=== PATIENT | female | born 1940 | race Caucasian/White ===

== ENCOUNTER 2019-10-13 08:00 | Outpatient (CLI) | payer MEDICARE, OTHER | END 2019-10-13 23:59 | disposition home or self-care (01) | LOC: LAB.R 08:00 | PROVIDERS: ATTEND Obstetrics & Gynecology | DX: R30.0 Dysuria (principal) | CPT/HCPCS: 87086; 87181 ==

== ENCOUNTER 2020-11-22 11:44 | Outpatient (CLI) | payer MEDICARE, OTHER ==
[2020-11-22 12:21] LABS: ALBUMIN 4.2 g/dL (3.2-5.5); ALBUMIN/GLOBULIN RATIO 1.1 (1.0-2.2); BILIRUBIN,TOTAL 0.4 mg/dL (0.2-1.0); CALCIUM 9.4 mg/dL (8.5-10.3); CREATININE 0.7 mg/dL (0.4-1.0); POTASSIUM 4.3 mmol/L (3.5-5.0); TOTAL PROTEIN 8.1 g/dL (6.7-8.2)
== END 2020-11-22 11:45 | disposition home or self-care (01) ==
LOC: LAB 11:44
PROVIDERS: ATTEND Family Medicine
DX: M81.0 Age-related osteoporosis without current pathological fracture (principal); Z87.81 Personal history of (healed) traumatic fracture; Z51.81 Encounter for therapeutic drug level monitoring
CPT/HCPCS: 36415; 80053; 82306

== ENCOUNTER 2022-09-16 08:00 | Outpatient (CLI) | payer MEDICARE, OTHER ==
[2022-09-16 21:00] LABS: BILIRUBIN,URINE NEGATIVE (NEGATIVE); GLUCOSE, URINE (UA) NEGATIVE (NEGATIVE); KETONES,URINE (UA) NEGATIVE (NEGATIVE); LEUKOCYTE ESTERASE, URINE SMALL (NEGATIVE); NITRITE,URINE POSITIVE (NEGATIVE); OCCULT BLOOD,URINE NEGATIVE (NEGATIVE); PH,URINE 5.5 PH (5.0-7.5); PROTEIN,URINE NEGATIVE (NEGATIVE); UROBILINOGEN,URINE 0.2 (NORMAL) E.U./dL (NORMAL)
[2022-09-16 21:12] LABS: BACTERIA,URINE Many /HPF (None Seen); CLARITY,URINE CLOUDY (CLEAR); SQUAMOUS EPITHELIAL CELL,UR RARE Squamous (<= Few); WBC CLUMPS,URINE PRESENT; WBC,URINE >25 /HPF (0-5)
== END 2022-09-16 23:59 | disposition home or self-care (01) ==
LOC: LAB 08:00
PROVIDERS: ATTEND Emergency Medicine
DX: R30.0 Dysuria (principal)
CPT/HCPCS: 81001; 87086; 87181

== ENCOUNTER 2023-09-15 15:36 | Emergency (ER) | payer MEDICARE, OTHER ==
--- NOTE | 2023-09-15 16:22 | XRAY Report ---
PROCEDURE: Foot 3+V LT INDICATIONS: Trauma TECHNIQUE: 3 views of the foot were acquired. COMPARISON: None. FINDINGS: Bones: Age-indeterminate fracture of the dorsal tibia. No abnormality of the base of the fifth digit. Soft tissues: Small tibiotalar joint effusion. Achilles tendon appears normal. IMPRESSION: Age-indeterminate fracture of the dorsal tibia, with small ankle joint effusion. Reviewed by: Mustapha Andrade MD on 09/15/2023 4:21 PM PDT Approved by: Mustapha Andrade MD on 09/15/2023 4:21 PM PDT Station ID: [id number]
--- NOTE | 2023-09-15 17:17 | ED Physician Documentation ---
History of Present Illness - Stated complaint Stated Complaint: L FOOT PX - Chief complaint Chief Complaint: Trauma Ext - History obtained from History obtained from: Patient - History of Present Illness Timing: How many weeks ago (2) Pain level max: 4 Pain level now: 4 - Additonal information Additional information: 82-year-old female presents to the emergency department after a fall 2 weeks ago at home. She states she fell down the stairs injuring her left foot. She states she still has bruising and swelling of the foot. Came in to make sure that there was no fracture. Worse with walking, better with rest. No head, neck, back pain. Review of Systems Musculoskeletal: denies: Neck pain, Back pain Neurologic: denies: Headache, Head injury, LOC PD PAST MEDICAL HISTORY - Past Medical History Past Medical History: No Cardiovascular: None Respiratory: None Neuro: None Endocrine/Autoimmune: Type 1 diabetes GI: None [employer]: None : None HEENT: None Psych: None Musculoskeletal: None Derm: None - Past Surgical History Past Surgical History: Yes - Present Medications Home Medications: Ambulatory Orders Medication Instructions Recorded Confirmed No Known Home Medications 09/15/23 09/15/23 - Allergies Allergies/Adverse Reactions: Allergies Allergy/AdvReac Type Severity Reaction Status Date / Time No Known Drug Allergies Allergy Verified 09/15/23 16:00 - Social History Does the pt smoke?: No Smoking Status: Never smoker PD ED PE NORMAL - Vitals Vital signs reviewed: Yes - General General: Alert and oriented X 3, No acute distress - HEENT HEENT: Atraumatic, Moist mucous membranes - Neck Neck: Supple, no meningeal sign - Cardiac Cardiac: RRR - Respiratory Respiratory: No respiratory distress, Clear bilaterally - Derm Derm: Warm and dry - Extremities Extremities: Other (- Mild swelling and tenderness, the left foot. Small amount of bruising near the fourth and fifth toes. Neurovascularly intact. Slight tenderness over the dorsal talus. Otherwise normal examination of the left foot and ankle) - Neuro Neuro: Alert and oriented X 3 Results - Vitals Vitals: Oxygen O2 Source Room air - Rads (name of study) L foot xray Relevant Findings:: Final report received, See rad report PD Medical Decision Making - ED course Complexity details: reviewed results, re-evaluated patient, considered differential, d/w patient ED course: Questionable fracture of the dorsal talus. Neurovascularly intact. No other fractures on x-ray. Placed in a walking boot. We will have her follow up with orthopedics for repeat evaluation and to ensure proper healing. Patient counseled regarding signs and symptoms for which I believe an urgent re- evaluation would be necessary. Patient with good understanding of and agreement to plan and is comfortable going home at this time. This document was made in part using voice recognition software. While efforts are made to proofread this document, sound alike and grammatical errors may occur. Departure - Departure Disposition: 01 Home, Self Care Clinical Impression: Talus fracture Qualifiers: Encounter type: initial encounter Fracture type: closed Talus location: unspecified portion of talus Fracture alignment: nondisplaced Laterality: left Qualified Code(s): S92.102A - Unspecified fracture of left talus, initial encounter for closed fracture Condition: Good Instructions: ED Fx Foot Follow-Up: [facility] CARTER [Primary Care Provider] - [facility] [Provider Group] - Within 1 week Comments: Please contact orthopedics for follow-up appointment. You appear to have a possible fracture on the dorsal aspect of your talus which is a bone in the top of your foot. Please stay in the walking boot is much as possible. You can use Motrin or Tylenol as needed for pain. Please return if you worsen. Forms: PCP List Discharge Date/Time: 09/15/23 17:28
[2023-09-15 17:29] VITALS: BP 169/98; O2SAT 98
== END 2023-09-15 17:28 | disposition home or self-care (01) ==
LOC: ED 15:36
DX: S92.142A Displaced dome fracture of left talus, initial encounter for closed fracture (principal); W10.9XXA Fall (on) (from) unspecified stairs and steps, initial encounter; Y93.89 Activity, other specified; Y92.008 Other place in unspecified non-institutional (private) residence as the place of occurrence of the external cause
CPT/HCPCS: 99283

== ENCOUNTER 2023-09-23 11:03 | Outpatient (CLI) | payer MEDICARE, OTHER ==
--- NOTE | 2023-09-23 23:51 | XRAY Report ---
PROCEDURE: Foot 3+V LT (Weight Bearing) INDICATIONS: PAIN IN LEFT FOOT TECHNIQUE: 3 views of the foot were acquired. COMPARISON: None. FINDINGS: Bones: Fracture fragment or ossicle adjacent to the distal talus is unchanged. No dislocations. No suspicious bony lesions. Degenerative changes of the phalanges and midfoot. Soft tissues: Possible trace tibiotalar joint effusion. Achilles tendon appears normal. Bunionette. IMPRESSION: Fracture fragment or ossicle adjacent to the distal talus is unchanged. If clinically indicated CT or MRI could be considered for further evaluation. Reviewed by: Vin Salinas MD on 09/23/2023 11:49 PM PDT Approved by: Vin Salinas MD on 09/23/2023 11:49 PM PDT Station ID: [id number]
== END 2023-09-23 11:04 | disposition home or self-care (01) ==
LOC: DI 11:03
PROVIDERS: ATTEND Physician Assistant Surgical
DX: M79.672 Pain in left foot (principal); R93.6 Abnormal findings on diagnostic imaging of limbs

== ENCOUNTER 2023-12-11 12:10 | Outpatient (CLI) | payer MEDICARE, OTHER ==
[2023-12-11 12:37] LABS: ALBUMIN 4.1 g/dL (3.2-5.5); ALBUMIN/GLOBULIN RATIO 1.1 (1.0-2.2); BILIRUBIN,TOTAL 0.4 mg/dL (0.2-1.0); CALCIUM 10.3 mg/dL (8.5-10.3); CREATININE 0.7 mg/dL (0.6-1.3); POTASSIUM 3.9 mmol/L (3.5-4.5); TOTAL PROTEIN 7.9 g/dL (6.4-8.9)
== END 2023-12-11 12:11 | disposition home or self-care (01) ==
LOC: LAB 12:10
DX: Z51.81 Encounter for therapeutic drug level monitoring (principal); M81.0 Age-related osteoporosis without current pathological fracture; Z87.81 Personal history of (healed) traumatic fracture
CPT/HCPCS: 36415; 80053; 81599; 82306

== ENCOUNTER 2023-12-18 14:01 | Outpatient (CLI) | payer MEDICARE, OTHER ==
[2023-12-18 14:29] LABS: ALBUMIN 4.2 g/dL (3.2-5.5); ALBUMIN/GLOBULIN RATIO 1.2 (1.0-2.2); BILIRUBIN,TOTAL 0.4 mg/dL (0.2-1.0); CALCIUM 10.5 mg/dL (8.5-10.3); CREATININE 0.9 mg/dL (0.6-1.3); POTASSIUM 3.5 mmol/L (3.5-4.5); TOTAL PROTEIN 7.8 g/dL (6.4-8.9)
== END 2023-12-18 14:02 | disposition home or self-care (01) ==
LOC: LAB 14:01
PROVIDERS: ATTEND Family Medicine
DX: M81.0 Age-related osteoporosis without current pathological fracture (principal); Z51.81 Encounter for therapeutic drug level monitoring; Z87.81 Personal history of (healed) traumatic fracture
CPT/HCPCS: 36415; 80053; 81599; 82306